=== PATIENT | female | born 1970 | race Caucasian/White ===

== ENCOUNTER 2021-05-25 09:00 | Outpatient (RCR) | payer OTHER, SELFPAY ==
--- NOTE | 2021-05-25 09:05 | BH.SGPN.GN ---
Behaviors/Verbalizations/Mental Status: [] Eye contact is good. Motor activity is appropriate. Appearance is disheveled. Speech is Appropriate. Mood is anxious. Affect is congruent. Thoughts are linear and logical. No evidence of psychosis. Reviewed daily check in sheet and no reports of suicidal ideations or intent. Client Response/Progress/Benefit: [] Pt participated when prompted. Attentive. Daily symptom tracker notes 3/5 for depression and irritability as well as 2/5 for anxiety. This was patient's first day in IOP. She shared briefly her struggles with depression and anxiety. Also shared struggles with support understanding her mental illness. She was mainly quiet. No progress noted as this was her first day. Group provided feedback and advice for her first day and week in IOP. Benefited from group support, encouragement, and feedback. Will continue in IOP to prevent decompensation, increase healthy coping, and improve functioning. Narrative Note: []
--- NOTE | 2021-05-25 10:15 | BH.SGPN.GN ---
Behaviors/Verbalizations/Mental Status: []Client alert and oriented, casually dressed and groomed. Eye contact good. Motor activity appropriate. Speech within normal limits. Affect constricted, mood dysthymic. Thoughts linear, logical, no signs of hallucinations or delusions. Client Response/Progress/Benefit: []Pt was well engaged in group AEB taking notes, providing input, and listening attentively throughout. Attentive during psychoeducation and discussed the importance of goal-setting with the group. Group identified potential benefits of having goals include: they motivate, build self-confidence, give a sense of accomplishment, and ?keep you from giving up.? Group also worked together to identify barriers to goal-setting which included; negative self-talk, lack of motivation, unrealistic expectations, and all or nothing thinking. Pt reports she does not set goals and that a barrier for her is low motivation and ?I?m overly critical of myself.? Benefited from increased awareness of benefits and barriers to goal-setting. Will continue IOP tx improve daily functioning, reduce negative thinking patterns, and increase healthy coping skills. Narrative Note: []
--- NOTE | 2021-05-25 10:27 | BH.COMM_ITS ---
Communication Note - Communication with Client Communication Note: Met with pt to complete initial paperwork. No significant changes since pre-admission screening. Denies any suicidal ideation, denies any current plan or intent. Denies any homicidal ideation. Reports history of thoughts of killing herself, but denies thoughts of methods or intent to act on these thoughts ever. Denies having thoughts of actually killing herself within the last month. Dorothea and family are protective factors. Does have access to a gun, but denies she would ever use a gun. Completed [place] Suicide Screening with low risk. Future-oriented.
--- NOTE | 2021-05-25 11:16 | BH.SGPN.GN ---
Behaviors/Verbalizations/Mental Status: []Client alert and oriented, casually dressed and groomed. Eye contact good. Motor activity appropriate. Speech within normal limits. Affect constricted, mood depressed, anxious. Thoughts linear, logical, no signs of hallucinations or delusions. Client Response/Progress/Benefit: []Pt new to IOP tx. Did well to remain an active participant in group discussions and challenge activity, taking notes throughout. Engaged as group worked to create an example SMART goal as well as identify resources for overcoming barriers to achieving the identified goal. Pt identified a SMART goal for the next week as ?Committing to attending IOP treatment and pulmonary rehab 3x each over the next week?. Reported this would help improve her physical and mental health, make her feel stronger, and improve confidence. Identified negative self-talk as a barrier. Pt reported she can overcome that barrier by using positive self-talk and opposite action when struggling with motivation. Benefited from group by being able to utilize SMART educate to create a goal. Pt to continue IOP to increase self-confidence, continue to promote consistent attendance and engagement, as well as improve coping skill repertoire. Narrative Note: []
--- NOTE | 2021-05-26 09:05 | BH.SGPN.GN ---
Behaviors/Verbalizations/Mental Status: []Client alert and oriented, casually dressed and groomed. Eye contact good. Motor activity appropriate. Speech within normal limits. Affect constricted, mood anxious. Thoughts linear, logical, no signs of hallucinations or delusions. Reviewed client?s symptom tracker, no risk for suicidal ideation, plan, or intent as of 05/26/21. Client Response/Progress/Benefit: []Client responded well to session, attentive and connecting with peers. Client reports feeling a little anxious, but also good. Client shared yesterday after IOP she pushed herself to go to another appointment and cook fruit which was positive. Client shared she was very tired at the end of the day, but she felt accomplished. Client stated her children reached out to her and gave her encouragement for getting mental health help. Client's biggest stressor right now is dealing with her physical and mental health. Appeared to benefit from connecting with peers and getting positive feedback. Will continue IOP tx to prevent decompensation, increase healthy coping skills, and reduce negative thought patterns. Narrative Note: []
--- NOTE | 2021-05-26 10:05 | BH.SGPN.GN ---
Behaviors/Verbalizations/Mental Status: []Eye contact is good. Motor activity is appropriate. Appearance is casual. Speech is Appropriate. Mood is anxious, depressed. Affect is congruent. Thoughts are linear and logical. No evidence of psychosis. Client Response/Progress/Benefit: [] Pt was an active participant in group discussion and activity. Attentive during psychoeducation on coping skills?. Pt along with peers worked together to identify unhealthy coping skills such as; avoidance, lashing out on others, substances, isolation, catastrophizing, and self-harm. Discussed beliefs that ?Reading can teach us skills for how to cope in healthy ways?. Group was able to identify why people use unhealthy coping skills such as; easy, comfortable, work in the short-term, habit, or it?s what they were taught/learned from others. Pt shared connecting with barrier of healthy coping skills being more difficult in the moment. Pt was able to make connection between the activity (tower building) and the importance of having a strong base/foundation of both internal and external coping skills. Benefited from increased understanding of unhealthy coping skills and the need for developing healthy internal and external coping skills. Pt will continue in IOP to improve management of depression, increase supports, as well as continue to stabilize mood. Narrative Note: []
--- NOTE | 2021-05-26 11:05 | BH.SGPN.GN ---
[]Behaviors/Verbalizations/Mental Status: []Client alert and oriented, casually dressed and groomed. Eye contact good. Motor activity restless. Speech within normal limits. Affect constricted, mood dysthymic. Thoughts linear, logical, no signs of hallucinations or delusions. Client Response/Progress/Benefit: []Client responded well to session, taking notes and contributing throughout. Group discussed the different categories of coping skills which included distraction, emotional release, grounding, self-love, and thought challenging. Client participated in creating a coping skills ?menu? from the five categories of coping skills. Client's coping skill menu included: distraction, journaling, self-compassion, breathing, and GLAD. Appeared to benefit from increasing repertoire of healthy coping skills. Will continue tx to help client regulate emotions, reduce negative thinking and prevent decompensation. Narrative Note: []
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
--- NOTE | 2021-05-27 10:14 | BH.SGPN.GN ---
Behaviors/Verbalizations/Mental Status: []Client alert and oriented, casually dressed and groomed. Eye contact good. Motor activity appropriate. Speech within normal limits, quiet. Affect constricted, mood anxious and depressed. Thoughts linear, logical, no signs of hallucinations or delusions. Client Response/Progress/Benefit: []Client responded well to session, attentive and taking notes throughout. Participated in discussion of things that can keep people feeling trapped or stuck in life including; avoidance, unhealthy coping, isolation, inconsistent boundaries, and surrounding self with toxic people. Shared connecting with negative thoughts and isolating as being a barrier. Group discussed the connection between thoughts, emotions, and behaviors as well as how negative thinking can keep a person stuck. Client attentive during psychoeducation on maintenance cycles. Client able to identify negative thoughts that have kept client stuck which included ?I should be doing more?, ?I?m not pretty?, and ?My does not love me because of my problems?. Appeared to benefit from gaining awareness of how negative thoughts reinforce mental health symptoms and keep people stuck. Will continue IOP tx to prevent decompensation, increase use of internal coping skills, as well as improve ability to challenge distorted thinking patterns. Narrative Note: []
[2021-05-27 10:45] VITALS: BP 120/58
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
--- NOTE | 2021-05-27 13:16 | BH.DR.ITP ---
Initial Treatment Plan Patient Information Visit Information: ADMISSION DATE: EXPECTED LOS: 4-6 weeks Problems/Symptoms Problem #1:: Depression Symptom:: Sadness, crying, hopelessness, worthlessness, guilt, low motivation, isolation, low energy, passive thoughts of , passive suicidal ideation Problem #2:: Anxiety Symptom:: Worry, avoidance
--- NOTE | 2021-05-27 13:34 | BH.MDN_ITS ---
Multi-Disciplinary Note - Note 30-min Individual Time Started:: 11:30 Date: 05/27/21 Purpose of session/treatment goals addressed:: Purpose of session was to assess pt's current symptoms and stressors and identify treatment goals for IOP. Eye Contact:: Fair Motor Activity:: Appropriate Appearance:: Disheveled Speech:: Appropriate Mood:: Anxious, Dysthymic Affect:: Congruent Thoughts:: Linear, Logical, No evidence of hallucinations/delusions noted Staff Interventions:: CBT techniques, rapport building, strengths perspective, treatment planning Client Response:: Client reported she has long history of depression and anxiety . Client stated she is a worrier about everything. Client reported for the past couple months she has only wanted to eat, sleep, and isolate. Client stated she had her medication dosage increased but still didn't see much improvement. Client reported she still enjoys to go out with her oldest daughter and grandson. Client stated she doesn't get to see her grandchild as much as she'd like because of her 's rigidity at their house, which can lead to anger. Client reported can trigger her anxiety because when he explodes she verbally becomes his punching bag. Client stated she's been to him for 32 years. Client stated in August 2020 she had covid and was on a ventilator. Client identifies continued health issues post covid as additional stressor. Client stated she easily is out of breath which makes it challenging to do much at home throughout the day. Client reported while in IOP she wants to learn internal coping strategies to help her manage anxiety, depression and stressors more effectively. Risks/Concerns:: Denies suicidal/homicidal ideation, plan or intention to date. Progress Toward Goals/Plan:: Pt's first individual session, no progress observed. Session was focused on building rapport and developing goals for IOP treatment. Pt is to continue IOP to increase healthy coping skills, improve daily functioning and prevent decompensation. Time Stopped:: 12:00
--- NOTE | 2021-05-27 13:37 | BH.PSA ---
Suicide Assessment Treatment Plan Recommendations
--- NOTE | 2021-05-27 13:37 | BH.PSA_ITS ---
Suicide Assessment Treatment Plan Recommendations
--- NOTE | 2021-05-27 13:37 | BH.MTP_ITS ---
Master Treatment Plan - Patient Information Program Physician:: Dr. Quevedo Primary Therapist:: Luna Scott, [facility] - Psychiatric Diagnoses Psychiatric Diagnoses:: Schizoaffective disorder, bipolar type, Generalized anxiety disorder, PTSD Diagnosis Code(s):: F 25.0 - Estimated LOS Estimated LOS (in weeks):: 6 Problem/Goal #1 - Problem/Goal #1 Stated Goal:: Client will decrease depressive symptoms, isolation, and agitation through Intensive Outpatient Program. Description of Barriers: Pt's limited social support, physical/medical complications with long covid, negative thought patterns, low energy, decreased motivation and distorted thought patterns could be potential barriers to treatment. Functional Impact: The patient is a 50-year-old female with a long history of schizoaffective disorder and PTSD who was referred here by her outpatient psych providers for depression and anxiety. The patient has COPD and is on oxygen in addition to having been diagnosed with long Covid syndrome. The patient states that the stressors that triggered this depression episode that is lasted about 2 months include being unable to play with her grandchildren due to her COPD and need for oxygen. Endorses depressed mood, crying spells, low motivation, isolation, increased appetite, decreased concentration, feelings of worthlessness, hopelessness and guilt. Pt reports passive, fleeting thoughts of . Denies active suicidal ideation. Reports being a worrier by nature and does avoid tasks that could increase her anxiety. Difficulty completing ADL?s and social functioning impacted due to isolative behaviors. - Objectives Objective #1 Stated Objective: Client will learn and utilize 2-3 healthy coping strategies to manage depressive symptoms. Interventions: Group and individual counseling will utilize CBT techniques to assist client with understanding the connection between thoughts, feelings and behaviors. Education will be provided on behavioral activation. Therapist will assist client in learning internal coping strategies to manage depressive symptoms, along with helping client identify triggers. Discharge Criteria: Client will have achieved this goal when can verbalize and practiced at least 2 healthy coping strategies that successfully manage depressive symptoms. Target Date: 07/06/21 Review Date: 06/22/21 Objective #2 Stated Objective: Pt will decrease depressive symptoms AEB pt?s score on the DSM 5 cross-cutting measure and improve pt?s daily functioning. Interventions: Through groups and individual therapy, pt will be provided with education on cognitive distortions, mistaken beliefs, and identifying and comb ating negative self-talk. Therapist will assist pt with getting back into the activities she once enjoyed as well as increasing healthy coping strategies. Discharge Criteria: Pt will have met this goal when pt?s score on the DSM 5 cross cutting measure for depression has been decreased and per pt?s report daily functioning has improved. Target Date: 07/06/21 Review Date: 06/22/21 Problem/Goal #2 - Problem/Goal #2 Stated Goal:: Stabilize anxiety level while increasing ability to function on daily basis. Description of Barriers: Pt's limited social support, physical/medical complications with long covid, negative thought patterns, low energy, decreased motivation and distorted thought patterns could be potential barriers to treatment. Functional Impact: The patient is a 50-year-old female with a long history of schizoaffective disorder and PTSD who was referred here by her outpatient psych providers for depression and anxiety. The patient has COPD and is on oxygen in addition to having been diagnosed with long Covid syndrome. The patient states that the stressors that triggered this depression episode that is lasted about 2 months include being unable to play with her grandchildren due to her COPD and need for oxygen. Endorses depressed mood, crying spells, low motivation, isolation, increased appetite, decreased concentration, feelings of worthlessness, hopelessness and guilt. Pt reports passive, fleeting thoughts of . Denies active suicidal ideation. Reports being a worrier by nature and does avoid tasks that could increase her anxiety. Difficulty completing ADL?s and social functioning impacted due to isolative behaviors. - Objectives Objective #1 Stated Objective: Client will learn and implement 2-3 calming skills to reduce overall anxiety and manage anxiety symptoms.?? Interventions: Individual and group therapy will teach calming/relaxation skills and how to apply these skills to everyday life. Discharge Criteria: Client will have achieved this goal when can verbalize at least 2 calming strategies and have practiced techniques to help reduce anxiety. Target Date: 07/06/21 Review Date: 06/23/21 Objective #2 Stated Objective: Pt will decrease anxious symptoms AEB pt?s score on the DSM 5 cross-cutting measure improve pt?s daily functioning. Interventions: Through groups and individual therapy, pt will be provided education about anxiety?s impact on body and common physiological reaction to anxiety. Therapist will teach pt appropriate breathing techniques and build healthy coping skills to manage daily anxieties. Discharge Criteria: Pt will have met this goal when pt?s score on the DSM 5 cross cutting measure for anxiety has been decreased and per pt?s report daily functioning has improved. Target Date: 07/06/21 Review Date: 06/23/21
[2021-05-27 15:18] VITALS: PULSE 114
--- NOTE | 2021-06-03 09:00 | BH.SGPN.GN ---
Behaviors/Verbalizations/Mental Status: []Eye contact is good. Motor activity is appropriate. Appearance is casual. Speech is appropriate. Mood is euthymic. Affect is congruent. Thoughts are linear and logical. No evidence of psychosis. Reviewed daily symptom tracker sheet with no reports of suicidal ideations, plan, or intent. Client Response/Progress/Benefit: []Client was engaged throughout group session. Client reported her emotion of the day as sad, due to not being able to function as she used to because of her health. An example the client reported was not being able to eliana her grandkids, but did well to challenge this by identifying ways she can still interact with them, like crafts. Appeared to benefit from group discussion of adapting to her new normal and suggestions of alternate activities to do with her grandkids. Client identified wins of cooking, feeding her pets, and letting her dog out, which is progress. Will continue IOP treatment to increase use of healthy coping skills to improve functioning. Narrative Note: []
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
--- NOTE | 2021-06-04 09:05 | BH.SGPN.GN ---
Behaviors/Verbalizations/Mental Status: [] Eye contact is good. Motor activity is appropriate. Appearance is casual. Speech is Appropriate. Mood is euthymic. Affect is full. Thoughts are linear and logical. No evidence of psychosis. Reviewed daily check in sheet and no reports of suicidal ideations or intent. Client Response/Progress/Benefit: [] Pt participated at times during the group discussions. Attentive. Emotion for today is joyful. Daily symptom tracker notes 2/3 for anxiety and 3/5 for anger. Shared some mental health wins which included rest, self-care, and spending time with support. Main stressor is conflicted relationship with spouse. She reports that she managed her emotion well over the weekend. Main skill used was talking talking with support. Progress noted. Benefits mainly from group support and encouragment. Will continue in IOP to prevent decompensation, increase healthy coping, and improve functioning. Narrative Note: []
--- NOTE | 2021-06-04 10:10 | BH.SGPN.GN ---
Behaviors/Verbalizations/Mental Status: [] Eye contact is good. Motor activity is appropriate. Appearance is casual. Speech is Appropriate. Mood is anxious. Affect is congruent. Thoughts are linear and logical. No evidence of psychosis. Client Response/Progress/Benefit: [] Pt was an active participant in group discussion and activity. Attentive during psychoeducation on anger. Participated in interactive discussion on reasons for anger and some positive benefits which include; standing up for something, sports, competition, causes us to set boundaries, and motivates us into action. Participated in discussion on the emotions that underlay anger or feed anger which pt identified were shame, trauma, feeling unfairly treated. Patient also shared how anger manifests which is shutdown. Benefited from increased understanding of anger and how it impacts individuals. Will continue in IOP to maintain safety, increase healthy coping skills, and improve functioning. Narrative Note: []
--- NOTE | 2021-06-04 10:16 | BH.SGPN.GN ---
Behaviors/Verbalizations/Mental Status: []Client alert and oriented, casually dressed and groomed. Eye contact good. Motor activity appropriate. Speech within normal limits. Affect constricted, mood dysthymic. Thoughts linear, logical, no signs of hallucinations or delusions. Client Response/Progress/Benefit: []Pt was an active participant AEB pt participating in activity, taking notes, and contributing to discussion. Pt worked with group to identify benefits of effective problem solving. Listened during psychoeducation about ABCDE problem solving method. Worked with group to identify barriers to effective problem solving which included: irrational thinking, impatience, indecisiveness, not having skills, feeling overwhelmed, and lack of motivation. Pt reported not knowing how to solve problems in her life has created a lot of negative self-talk. Pt seemed to benefit from increased awareness of strategies to help solve a problem. Pt will continue IOP tx to gain healthy coping skills, increase support, and reduce isolating behaviors. Narrative Note: []
--- NOTE | 2021-06-04 11:13 | BH.SGPN.GN ---
Behaviors/Verbalizations/Mental Status: []Eye contact is good. Motor activity is appropriate. Appearance is casual. Speech is Appropriate. Mood is depressed. Affect is congruent. Thoughts are linear and logical. No evidence of psychosis. Client Response/Progress/Benefit: []Pt responded well to session as evidenced by contributing during challenge activity, taking notes, and providing input throughout. Processed how strategies used for problem solving in activity can be applied to daily life. Completed problem solving worksheet and identified the problem she wants to work on as ?improve self-love?. Pt identified skills she can utilize to work on this problem include: increase awareness of self-love skills, find ways to reduce stress levels, shower more consistently, begin practicing positive affirmations, and practice. Discussed that working to solve this problem will aid in increasing self-confidence, reduce depression, and decrease negative self-talk. Pt seemed to benefit from identifying strategies to problem solve through a problem currently impacting mental health. Recommended continued tx to further improve consistent healthy coping and self-care, continue to promote positive self-talk, and further improve depression management skills. Narrative Note: []
--- NOTE | 2021-06-05 09:05 | BH.SGPN.GN ---
Behaviors/Verbalizations/Mental Status: Eye contact is good. Motor activity is appropriate. Appearance is casual. Speech is appropriate. Mood is anxious. Affect is congruent. Thoughts are linear and logical. No evidence of psychosis. Reviewed daily symptom tracker sheet with no reports of suicidal ideations, plan, or intent. Client Response/Progress/Benefit: Client was engaged throughout group session. Client reported her emotion of the day as ?joyful?. Discussed positives of getting up and coming to group today. Client stated that she ?overdid it? yesterday, allowing her grandkids to come over even when she felt exhausted. Appeared to benefit from group discussion of the importance of setting boundaries and self-care. Client reported listening to music to relieve stress. Client indicated per daily symptom tracker that her mood and ability to function have been generally better. Will continue IOP treatment to improve boundary setting and increase the use of self-care to improve functioning. Narrative Note: []
--- NOTE | 2021-06-05 10:10 | BH.SGPN.GN ---
Behaviors/Verbalizations/Mental Status: []Client alert and oriented, casually dressed and groomed. Eye contact good. Motor activity appropriate. Speech within normal limits. Affect constricted, mood dysthymic. Thoughts linear, logical, no signs of hallucinations or delusions. Client Response/Progress/Benefit: []Pt was an engaged participant in group discussion AEB taking notes and providing input at times. Attentive during psychoeducation reviewing internal and external obstacles and provided examples throughout. Participated in the reflection activity in which clients shiraz pictures depicting their current and desired reality and shared with the group. Pt identified barriers to getting to desired reality which included: fear, lack of positive affirmations, marriage, and no motivation. Benefited from group by increasing awareness of current reality and barriers. Will continue IOP tx to increase healthy coping skills, challenge negative thoughts and prevent decompensation. Narrative Note: []
--- NOTE | 2021-06-05 11:15 | BH.SGPN.GN ---
Behaviors/Verbalizations/Mental Status: []Client alert and oriented, casually dressed and groomed. Eye contact good. Motor activity appropriate. Speech within normal limits. Affect congruent, mood depressed, agitated. Thoughts linear, logical, no signs of hallucinations or delusions. Client Response/Progress/Benefit: []Client engaged during activity and provided ideas on how to cope with internal barriers that keep clients stuck from moving towards goals. Client took on an active support role during activity, which is progress in overall engagement levels. Able to identify barriers to desired reality. Identified barriers to current reality to include: negative self-talk, marital issues, poor boundaries, and procrastination. Client wants to work on overcoming the barrier of procrastination by more consistently using the ?opposite action? technique, specifically challenging herself to complete at least 3 things on her ?to-do? list when struggling with motivation to do so. Shared that this will help her to feel a sense of accomplishment, increase motivation, and reduce negative thoughts about self. Benefited from group by identifying obstacles and solutions to desired reality. Client will continue IOP tx to reduce distortions and improve behavior activation skills, increase use of healthy coping skills, as well as continue to improve overall functioning. Narrative Note: []
--- NOTE | 2021-06-10 09:05 | BH.SGPN.GN ---
Behaviors/Verbalizations/Mental Status: []Eye contact is good. Motor activity is appropriate. Appearance is casual. Speech is appropriate. Mood is anxious. Affect is congruent. Thoughts are linear and logical. No evidence of psychosis. Reviewed daily symptom tracker sheet with no reports of suicidal ideations, plan, or intent. Client Response/Progress/Benefit: []Client was engaged throughout group session. Client reported her emotions of the day as ?anxious and depressed?. Client discussed that she gave her ?a hard time?, and that she has been experiencing ?a lot of emotions?, including agitation. Appeared to benefit from clinician and group discussion regarding journaling and communication techniques to help reduce agitation. Client stated her wins as utilizing opposite action to come to group and take care of tasks at home. Client reached out to her support system, and was able to identify one of her maintenance cycles, which is progress. Client indicates per daily symptom tracker that her mood has been generally worse, and reports moderate-severe agitation, moderate depression and anxiety. Will continue IOP treatment to increase mood stability and ability to manage depression and anxiety symptoms to increase ability to function. Narrative Note: []
--- NOTE | 2021-06-10 10:10 | BH.SGPN.GN ---
Behaviors/Verbalizations/Mental Status: []Client alert and oriented, casually dressed and groomed. Eye contact good. Motor activity appropriate. Speech within normal limits. Affect congruent, mood euthymic. Thoughts linear, logical, no signs of hallucinations or delusions. Client Response/Progress/Benefit: []Client engaged during session AEB client contributing thoughts throughout discussion and completing worksheet. Connected with discussion on crisis and how coping with external crises by using unhealthy coping skills could result in a personal crisis. Able to give examples of unhealthy coping skills people use to manage crisis. Group reflected on the importance of having awareness of personal warning signs to prevent reaching crisis point. Group identified potential warning signs for crisis and client completed the personal warning signs worksheet. Client identified personal crisis warning signs to include: crying more frequently, unusual drop in functioning, and rapid mood changes. Client benefited by increasing awareness of what leads to crisis and personal warning signs. Client demonstrating progress in self-report of practicing opposite action. Will continue IOP tx to reduce negative thinking patterns, reduce isolation, and increase emotional regulation skills. Narrative Note: []
--- NOTE | 2021-06-10 11:10 | BH.SGPN.GN ---
Behaviors/Verbalizations/Mental Status: []Client alert and oriented, casually dressed and groomed. Eye contact fair. Motor activity appropriate. Speech within normal limits. Affect congruent. Mood euthymic. Thoughts linear, logical, no signs of hallucinations or delusions. Client Response/Progress/Benefit: []Client responded well to session as evidenced by client listening attentively to others and providing strategies during discussion. Client identified her warning signs for crisis and gained further awareness of earliest warning signs. Client created a crisis action plan to help client better manage warning signs for crisis. Client?s action plan for crying more frequently included: positive self-talk, giving self permission to cry, and talk with a support person. Client appeared to benefit from creating a crisis action plan and increasing self-awareness. Client to continue IOP tx to increase healthy coping skills, increase interaction with healthy supports and prevent decompensation.
--- NOTE | 2021-06-11 09:00 | BH.SGPN.GN ---
Behaviors/Verbalizations/Mental Status: []Pt eye contact fair, casually dressed, motor activity appropriate, speech normal rate and tone, mood depressed, congruent affect, thoughts linear and intact, no evidence of delusions or hallucinations. Reviewed client?s symptom tracker, no signs of suicidal ideation, plan, or intent as of today. Client Response/Progress/Benefit: []Pt responded well to session AEB listening attentively to group, providing feedback and sharing thoughts and feelings. Pt reported she has been struggling with completing homework of practicing healthy coping skills. Pt reported she did attain goal of attending IOP for two weeks. Pt stated mental health positive as meditating to help release stress. Pt stated current stressor as her personal insecurities and low self-confidence. Pt seemed to benefit from support from peers. Pt to continue IOP to increase consistent utilization of healthy coping, improve self-confidence and prevent decompensation. Narrative Note: []
--- NOTE | 2021-06-11 11:16 | BH.SGPN.GN ---
Behaviors/Verbalizations/Mental Status: []Eye contact is good. Motor activity is appropriate. Appearance is casual. Speech is Appropriate. Mood is depressed, anxious. Affect is congruent. Thoughts are linear and logical. No evidence of psychosis. Client Response/Progress/Benefit: []Pt was an engaged participant, taking notes and providing input throughout group discussion and activity. Attentive during psychoeducation on cognitive distortions not discussed in previous group and shared connecting with several examples shared by fellow participants. Pt indicated connecting with distortions of personalization, disqualifying the positives, and overgeneralization. Shared personal example of overgeneralization when it comes to asking for help from others. Pt was an actively engaged participant in Cognitive Distortions Jeopardy, providing input and suggestions to small group, though at times did appear to be distracted by her own thoughts. Utilized notes from psychoeducation on cognitive distortions to assist peers in correctly answering questions. Expressed benefitting from working with the group to continue to familiarize herself with the various type of distortion. Experiential activity was beneficial as it provided a way for patient to review notes and handouts during psychoeducation to answer questions for the game. Will continue in [facility] tx to further improve application healthy coping skills for more consistent management of symptoms, improve self-care and ability to establish healthy boundaries with others, as well as further improve ability to manage stressors impacting ability to function at baseline. Narrative Note: []
--- NOTE | 2021-06-11 15:37 | BH.MDN ---
Multi-Disciplinary Note - Note 60-min Individual Time Started:: 10:00 Date: 06/11/21 Purpose of session/treatment goals addressed:: Purpose of session was to address goal 1 from MTP. Eye Contact:: Fair Motor Activity:: Restless Appearance:: Casual, Other - fair hygiene Speech:: Appropriate Mood:: Anxious, Depressed Affect:: Labile Thoughts:: Linear, Logical, No evidence of hallucinations/delusions noted Staff Interventions:: thought challenging, CBT techniques, strengths perspective, goal setting Client Response:: Pt reported she is feeling very insecure this morning. Pt shared she was having anxious thoughts that her is having an affair. Pt stated she has believed her has cheated on her in the past and sometimes will question if he has a secret life. Pt reported he denies every cheating on pt. Pt stated he seems to have stayed the same since the day they met and she has changed a lot. Pt reported she thinks this causes issues in their marriage. Pt stated they have attempted couples counseling 5 different times and he doesn't go back after the first session. Pt reported he has made it clear to her that he will not be changing anything about himself. Pt stated she knows she needs to make a decision on what she wants to do. Pt reported she needs to decide if she is okay with the relationship as is or if she thinks the relationship needs to end because of the impact it can have on her mental health. Pt stated she has been stuck with trying to make this decision for a long time. Pt reported her anxiety and irritability are increased but she attributes this to decreased sleep. Pt reported this weekend she wants to make sure she gets out of the house and spend time with her grandchildren. Pt receptive to self-care discussion and make sure she advocates for her needs. Risks/Concerns:: denies suicidal ideation, plan or intention to date. future focused. Progress Toward Goals/Plan:: Pt reporting increase in anxiety and depression. Pt only getting 4 hours of sleep which appears to be negatively impacting her mental health. Pt's relationship is significant stressor in pt's life. Pt struggling with making decision what she wants in regards to her marriage. Pt's insecurities triggered this morning which pt reported increased anxious symptoms. Pt to continue IOP to increase self-care, improve confidence, and prevent decompensation. Time Stopped:: 10:54
--- NOTE | 2021-06-19 16:31 | BH.DS_ITS ---
Discharge Summary - Demographics Date of Admission:: 05/25/21 Discharge Date: 06/19/21 Presenting Problems at Admission:: Pt has long history of schizoaffective disorder and PTSD who was referred here by her outpatient psych providers for depression and anxiety. The patient has been 32 years and describes her marriage as difficult. She has a history of 10 psychiatric admissions in the past but says that her current medication regimen has stabilized her and has prevented her from becoming manic which is what caused her prior admissions. The patient has COPD and is on oxygen in addition to having been diagnosed with long Covid syndrome. patient stated that the stressors that triggered this depression episode that is lasted about 2 months include being unable to play with her grandchildren due to her COPD and need for oxygen. She has lost some of her independence and has a hard time doing her activities of daily living and has a difficulty doing chores around the house. At admission pt endorsed depressed mood with uncontrollable crying, low motivation, isolation, feelings of guilt and hopelessness. She did endorse having passive thoughts that she would not care if she . She denied any plan for suicide. Discharge Diagnoses:: 1. Schizoaffective disorder, bipolar type (F 25.0). 2. Generalized anxiety disorder. 3. PTSD Reason for Discharge:: Pt elected to discharge from [facility] due to having a hard time managing IOP sessions and pulmonary rehab. Pt stated she needs to focus on her pulmonary rehab first and will return to IOP if needed once rehab is complete. - Treatment Progress During Treatment & Response: Mild progress noted with pt reporting improved mood, following through with goals set in individual sessions, and increased awareness of distorted thought patterns. Pt continued to struggle with marital conflicts and difficulty adjusting to her physical ailments. Pt was an engaged and active participant when attended IOP sessions. Attendance was a bit inconsistent at times. Issues Still to be Addressed:: Pt could benefit from continued work on emotion regulation, healthy coping skills, and challenge negative perspective. Continued work on creating a daily routine/schedule that includes activities beyond daily chores. Pt could benefit from self-compassion and setting realistic goals. Discharge Recommendations/Instructions:: Pt recommended to continue treatment with already established outpatient providers. Discharge Handout: Complete Discharge Handout with client on aftercare options and continuity of care.
== END 2021-06-21 23:59 ==
LOC: BHIOP 09:00
PROVIDERS: Referring Provider Psychiatry & Neurology Psychiatry; Visit Provider Psychiatry & Neurology Psychiatry
DX: F25.0 Schizoaffective disorder, bipolar type (principal); F41.1 Generalized anxiety disorder; F43.10 Post-traumatic stress disorder, unspecified; E66.9 Obesity, unspecified; J44.9 Chronic obstructive pulmonary disease, unspecified; Z79.899 Other long term (current) drug therapy; Z99.81 Dependence on supplemental oxygen; Z86.16 Personal history of COVID-19
CPT/HCPCS: S9480; 90832; 90834; 90837; 90853

== ENCOUNTER 2022-06-28 17:18 | Emergency (ER) | payer OTHER, SELFPAY ==
[2022-06-28] VITALS (8 sets, daily range): BP systolic 125–148; BP diastolic 63–75; PULSE 99–105; RESP 16–102; TEMP 36.3–37; O2SAT 91–99; BMI 42.3
--- NOTE | 2022-06-28 18:25 | EDS_ITS ---
HPI HPI - Psych History of Present Illness Chief Complaint: Suicidal Narrative Narrative: Patient presents with suicidal thoughts and increased anxiety. She states she has been having suicidal thoughts for a week but today the thoughts got so bad that while she was sitting on the toilet she thought to herself, my life is so hard I want to blow my head off. She states she took an Ativan but it did not calm her anxiety. She denies acting on these thoughts in any way and denies any self-harm. She told her how she was feeling and he brought her here to the ED. She denies any drug use, alcohol use, or intent to act on the suicidal thoughts. She states her mental health struggles have caused her to feel exhausted throughout the day making it hard for her to take care of herself or take care of anything around the house. She admits to having some shortness of breath but attributes this to her chronic COPD and and states she could use a breathing treatment. [facility] Medical History COPD (chronic obstructive pulmonary disease) Diabetes mellitus, type 2 Generalized anxiety disorder History of COVID-19 Obesity PTSD (post-traumatic stress disorder) Schizoaffective disorder, bipolar type Suicidal ideation Home Medications benztropine 1 mg tablet 1 mg PO BID 05/27/21 [History Last Taken Unknown] budesonide 160 mcg-glycopyr 9 mcg-formot 4.8 mcg/actuation HFA inhaler 1 inh inhalation BID 05/27/21 [History Last Taken Unknown] diltiazem HCl 360 mg capsule,24 hr,extended release 360 mg PO DAILY 05/27/21 [History Last Taken Unknown] divalproex 500 mg tablet,extended release 24 hr (Depakote ER) 1,000 mg PO BID 05/27/21 [History Last Taken Unknown] duloxetine 60 mg capsule,delayed release sprinkle 60 mg PO DAILY 05/27/21 [History Last Taken Unknown] famotidine 40 mg tablet 40 mg PO QHS 05/27/21 [History Last Taken Unknown] fenofibrate nanocrystallized 145 mg tablet 145 mg PO DAILY 05/27/21 [History Last Taken Unknown] gabapentin 600 mg tablet 600 mg PO BID 05/27/21 [History Last Taken Unknown] lisinopril 10 mg tablet 10 mg PO DAILY 05/27/21 [History Last Taken Unknown] lorazepam 1 mg tablet 1 mg PO DAILY PRN PRN Anxiety 05/27/21 [History Last Taken Unknown] metformin 1,000 mg tablet 1,000 mg PO BID diabetes 05/27/21 [History Last Taken Unknown] risperidone 1 mg tablet (Risperdal) 1 mg PO BID 05/27/21 [History Last Taken Unknown] Allergy/AdvReac Type Severity Reaction Status Date / Time ceftriaxone [From Rocephin] Allergy Anaphylaxis Verified 06/28/22 17:21 fluticasone Allergy Swelling Verified 06/28/22 17:21 [From Advair Diskus] salmeterol Allergy Swelling Verified 06/28/22 17:21 [From Advair Diskus] aripiprazole [From Abilify] AdvReac Other Verified 06/28/22 17:21 sulfamethoxazole AdvReac Rash Verified 06/28/22 17:21 [From Bactrim] trimethoprim [From Bactrim] AdvReac Rash Verified 06/28/22 17:21 vancomycin AdvReac Other Verified 06/28/22 17:21 Surgical History H/O hernia repair History of tracheostomy Social History Smoking Status: Former smoker ROS ROS ED Constitutional Constitutional ED: Denies chills, fever(s) or sweats Eyes Eyes: Denies change in vision ENT ENT ED: Denies rhinorrhea or sore throat Cardiovascular Cardiovascular: Denies chest pain or palpitations Respiratory/Chest Respiratory/Chest: Reports shortness of breath at rest; Denies chest congestion, chest tightness or cough Gastrointestinal Gastrointestinal: Denies abdominal pain, constipation, diarrhea, nausea or vomiting Genitourinary Genitourinary ED: Denies dysuria Musculoskeletal Musculoskeletal: Denies myalgias Integumentary Denies abscess, Abrasions or rash Neurologic Neurologic: Denies headache(s) or weakness Psychiatric Psychiatric: Reports anxiety, depression and suicidal thoughts EXAM Physical Exam Const Vital Signs: 06/28/22 17:22 06/28/22 18:43 06/28/22 18:49 Temperature 97.3 F L Temperature Source Temporal Pulse Rate 101 H 99 Respiratory Rate 16 16 16 Blood Pressure 125/63 H Blood Pressure Mean 83 Pulse Ox 91 Oxygen Delivery Method Nasal Cannula Room Air Oxygen Flow Rate (L/min) 4 06/28/22 19:07 06/28/22 20:10 Temperature Temperature Source Pulse Rate Respiratory Rate 16 18 Blood Pressure Blood Pressure Mean Pulse Ox 99 Oxygen Delivery Method Room Air Oxygen Flow Rate (L/min) Positive well nourished General Appearance ED: pallor HEENT Reports moist mucous membranes normocephalic and atraumatic Eyes PERRL and EOMs intact bilaterally Neck supple Resp normal respiratory effort and clear to auscultation bilaterally Auscultation: Negative for rales, rhonchi, wheezes or diminished lung sounds Cardio no murmurs Rate: regular rate Rhythm: regular rhythm GI non-tender, non-distended and no masses Palpation: Negative for hepatomegaly or splenomegaly Extremity normal to inspection General Extremety ED: Negative for edema General Extremity: Negative for edema Neuro oriented x3 and no sensory deficits noted Sensorium / Orientation: alert Psych mental status grossly normal, thought process normal, cooperative, speech normal and activity/motor behavior normal Appearance: grossly normal Attitude: calm Activity / Motor Behavior: appropriate eye contact Speech: normal speech Mood & Affect: anxious and sad Thought Process: normal thought process Thought Content: normal thought content Attention / Concentration: attention grossly intact Memory / Cognition: memory grossly intact Skin General Skin Exam: pallor Lesions: no lesions Rashes: no rashes Trauma: Negative for abrasion or laceration MDM MDM MDM Narrative Medical decision making narrative: Crisis has evaluated patient and feels she should be admitted to a psychiatric facility. Patient is medically cleared for this and now pending placement. Lab Data Attestation: I reviewed the patient's lab results. Labs: Laboratory Results - last 24 hr 06/28/22 06/28/22 06/28/22 18:51 18:51 18:51 WBC 7.2 RBC 4.22 Hgb 11.5 L Hct 36.7 L MCV 87.0 MCH 27.3 MCHC 31.3 L RDW Std Deviation 45.0 H RDW Coeff of Susie 14.2 Plt Count 247 MPV 8.9 Immature Gran % (Auto) 0.700 Neut % (Auto) 67.7 Lymph % (Auto) 23.2 Dixon % (Auto) 7.0 Eos % (Auto) 1.3 Baso % (Auto) 0.1 Absolute Neuts (auto) 4.9 Absolute Lymphs (auto) 1.66 Nucleated RBC % 0 Sodium 142 Potassium 3.8 Chloride 103 Carbon Dioxide 34.0 H Anion Gap 5 BUN 24 H Creatinine 0.66 Estim Creat Clear Calc 89.72 Est GFR (MDRD) Af Amer 121 Est GFR (MDRD) Non-Af 100 BUN/Creatinine Ratio 36.4 H Glucose 206 H Calcium 9.9 Serum , Qual Urine Opiates Screen Urine Methadone Screen Ur Barbiturates Screen Ur Phencyclidine Scrn Ur Amphetamines Screen MDMA (Ecstasy) Screen U Benzodiazepines Scrn Urine Cocaine Screen U Cannabinoids Screen Ur Drug Screen Comment Ethyl Alcohol < 3.0 06/28/22 06/28/22 18:51 19:05 WBC RBC Hgb Hct MCV MCH MCHC RDW Std Deviation RDW Coeff of Susie Plt Count MPV Immature Gran % (Auto) Neut % (Auto) Lymph % (Auto) Dixon % (Auto) Eos % (Auto) Baso % (Auto) Absolute Neuts (auto) Absolute Lymphs (auto) Nucleated RBC % Sodium Potassium Chloride Carbon Dioxide Anion Gap BUN Creatinine Estim Creat Clear Calc Est GFR (MDRD) Af Amer Est GFR (MDRD) Non-Af BUN/Creatinine Ratio Glucose Calcium Serum , Qual NEGATIVE Urine Opiates Screen NEGATIVE Urine Methadone Screen NEGATIVE Ur Barbiturates Screen NEGATIVE Ur Phencyclidine Scrn NEGATIVE Ur Amphetamines Screen NEGATIVE MDMA (Ecstasy) Screen NEGATIVE U Benzodiazepines Scrn NEGATIVE Urine Cocaine Screen NEGATIVE U Cannabinoids Screen NEGATIVE Ur Drug Screen Comment Ethyl Alcohol EKG Initial EKG: Attestation: I personally reviewed and interpreted this EKG as follows: Interpretation: Sinus Rhythm Comments: Rate 98. Frequent PVCs. No signs of cardiac ischemia, no ST elevation. EKG also reviewed by attending ED physician. Discharge Plan Triage Chief Complaint: Suicidal ED Midlevel Provider: Socorro Keenan ED Provider: Elgin Alvarez Dx/Rx/DC Orders Prescriptions: No Action metformin 1,000 mg Tablet 1,000 mg PO BID gabapentin 600 mg Tablet 600 mg PO BID famotidine 40 mg Tablet 40 mg PO QHS diltiazem HCl 360 mg Capsule,Extended Release 24 Hr 360 mg PO DAILY lisinopril 10 mg Tablet 10 mg PO DAILY benztropine 1 mg Tablet 1 mg PO BID risperidone [Risperdal] 1 mg Tablet 1 mg PO BID fenofibrate nanocrystallized 145 mg Tablet 145 mg PO DAILY [id number] 160-9-4.8 mcg/actuation Hfa Aerosol Inhaler 1 inh INHALATION BID divalproex [Depakote ER] 500 mg Tablet Extended Release 24 Hr 1,000 mg PO BID lorazepam 1 mg Tablet 1 mg PO DAILY PRN PRN (Reason: Anxiety) duloxetine 60 mg Capsule, Delayed Rel Sprinkle 60 mg PO DAILY Primary Care Provider: Armand Hammer Referrals: [facility] Doctor,Out of [Non-Staff] -
[2022-06-28] MEDS: Ipratropium/Albuterol Sulfate 3 ML AMPUL.NEB INHALATION (18:48)
[2022-06-28 18:59] LABS: Absolute Lymphocyte Count 1.66 X10^3/uL (0.83-4.51); Absolute Neutrophil Count 4.9 X10^3/uL (2.0-7.7); Basophil# 0.01 X10^3/uL; Basophil% 0.1 % (0-1); Eosinophil# 0.09 X10^3/uL; Eosinophils% 1.3 % (0-5); Hematocrit 36.7 % (37-47); Hemoglobin 11.5 g/dL (12.0-15.0); Lymphocyte # 1.66 X10^3/ul (0.83-4.51); Lymphocyte % 23.2 % (19-41); Mean Corp Hgb Conc 31.3 g/dL (32-36); Mean Corpuscular Hgb 27.3 pg (27.0-32.0); Mean Platelet Vol. 8.9 fl (6.2-12.0); NRBC Flagged by Analyzer 0 % (0-5); Neutrophil # 4.86 X10^3/uL (2.7-7.7); Neutrophil % 67.7 % (47-70); Platelet Count 247 K/mm3 (150-450); RBC Distribution Width CV 14.2 % (11.6-14.6); Red Blood Count 4.22 M/mm3 (4.2-5.4); White Blood Count 7.2 K/mm3 (4.4-11.0)
[2022-06-28 19:19] LABS: Anion Gap 5 (5-15); BUN 24 mg/dL (7-18); BUN/Creat Ratio 36.4 RATIO (10-20); Calcium,Total 9.9 mg/dL (8.5-10.1); Chloride 103 mmol/L (98-107); Creatinine, Serum 0.66 mg/dL (0.55-1.02); EST Glomerular Filtration Rate 100 mL/min (>60); Est Glom Filt Rate - Afr Amer 121 mL/min (>60); Estimated Creatinine Clearance 89.72 ml/min; Glucose 206 mg/dL (74-106); Potassium 3.8 mmol/L (3.5-5.1); Sodium Level 142 mmol/L (136-145)
[2022-06-28 19:24] LABS: Alcohol, Blood (Medical)-Serum < 3.0 mg/dL; Internal QC Validated? YES +Cl - CLEAR BKGD; Pregnancy, Serum, hCG Quali. NEGATIVE Negative
[2022-06-28 19:27] LABS: Amphetamine Urine VISTA NEGATIVE (<1000 ng/mL); Barbiturate Urine VISTA NEGATIVE (< 200 ng/mL); Benzodiazepine Urine VISTA NEGATIVE (< 200 ng/mL); Cocaine Urine VISTA NEGATIVE (< 300 ng/mL); Ecstacy Urine VISTA NEGATIVE (< 500 ng/mL); Methadone Urine VISTA NEGATIVE (< 300 ng/mL); PCP Urine VISTA NEGATIVE (< 25 ng/mL); THC Urine VISTA NEGATIVE (< 50 ng/mL); Vista UDS pH Range 6
--- NOTE | 2022-06-28 19:39 | CM.ED ---
YASIR received voice mail from Anila at [facility]. She said that patient came as a walk in crisis assessment. Voiced SI with thought but no intent. Anila said that the safety plan is not working. Patient is requesting inpatient treatment. YASIR spoke to Anila at [facility]. She said that she will work on placement. Patient has [employer] insurance. SHe had patient come to the ED for medical clearance. YASIR reviewed with quality assurance monitor chassis and patient's medical tests are back. YASIR called Estefania at [facility] and advised that the drying unit felting machine operator will be faxing referral packet. YASIR asked Sherri, drying unit felting machine operator, to fax referral packet to [facility] and she agreed to send fax. Plan: [facility] will facilitate inpatient psych placement. Susanna OROZCO
--- NOTE | 2022-06-28 19:54 | EKG12_ITS ---
Test Reason : [facility] [place] Blood Pressure : / mmHG Vent. Rate : 098 BPM Atrial Rate : 098 BPM P-R Int : 200 ms QRS Dur : 080 ms QT Int : 350 ms P-R-T Axes : 063 073 041 degrees QTc Int : 446 ms Sinus rhythm with frequent Premature ventricular complexes Biatrial enlargement Low voltage QRS (Limb Leads) Abnormal ECG Confirmed by AIDE REA, ISRA ([id number]), social media editor MARCK STEVENS ([id number]) on 06/30/2022 11:09:49 AM Referred By: Confirmed By:ISRA NOBLE MD
--- NOTE | 2022-06-28 20:00 | ED.RN ---
FAXED INFORMATION TO [facility]
[2022-06-29] VITALS (12 sets, daily range): BP systolic 107–137; BP diastolic 60–66; PULSE 92–111; RESP 16–20; TEMP 36.6; O2SAT 92–94
--- NOTE | 2022-06-29 00:27 | ED.RN ---
PATIENT ACCEPTED AT [facility] ETA [phone]
[2022-06-29] MEDS: Albuterol 2.5 MG/3 ML VIAL.NEB. INHALATION ×2 (01:29→06:57)
[2022-06-29] MEDS: Divalproex (ER) 500 MG Tablet 1000 MG PO (02:13)
[2022-06-29] MEDS: Metoprolol Tartrate 100 MG Tablet 200 MG PO (02:14)
[2022-06-29] MEDS: metFORMIN (XR) 500 MG Tablet 1000 MG PO (02:14)
[2022-06-29] MEDS: Famotidine 20 MG Tablet 40 MG PO (02:17)
[2022-06-29] MEDS: LORazepam 1 MG Tablet PO (02:17)
[2022-06-29 03:36] LABS: Bedside Glucose 149 mg/dL (74-106)
== END 2022-06-29 07:00 ==
PROVIDERS: Physician Assistant; Emergency Provider Emergency Medicine; PCP Student in an Organized Health Care Education/Training Program; Visit Provider Emergency Medicine
DX: R45.851 Suicidal ideations (principal); F25.0 Schizoaffective disorder, bipolar type; J44.9 Chronic obstructive pulmonary disease, unspecified; E11.9 Type 2 diabetes mellitus without complications; F41.8 Other specified anxiety disorders; E66.9 Obesity, unspecified; F43.10 Post-traumatic stress disorder, unspecified; Z79.899 Other long term (current) drug therapy; Z79.84 Long term (current) use of oral hypoglycemic drugs; Z87.891 Personal history of nicotine dependence
CPT/HCPCS: 80048; 80307; 82077; 82962; 84703; 85025; 87811; 93005; 94640; 99284